=== PATIENT | male | born 1990 ===

== ENCOUNTER 2016-11-19 08:33 | Emergency (ER) | payer OTHER ==
[2016-11-19 09:00] VITALS: RESP 18; O2SAT 99
[2016-11-19] MEDS ORDERED: Naproxen 550 mg Tab PO STA (09:29)
[2016-11-19] MEDS ORDERED: Naproxen 550 mg Tab PO ONE (09:34)
--- NOTE | 2016-11-19 10:57 | RAD ---
Lumbar spine three views History: Injury. Comparison: None available. 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 Question minimal angulation of the anterior cortex of the distal sacrum/proximal coccyx for which subtle nondisplaced fracture can't be excluded. This may be better evaluated with MRI. Vertebral body heights are preserved. Spinal alignment is maintained. Impression: Hemisacralization of the left aspect of the L5 vertebral body. Question minimal angulation of the anterior cortex of the distal sacrum/proximal coccyx for which subtle nondisplaced fracture can't be excluded. This may be better evaluated with MRI.
--- NOTE | 2016-11-19 11:02 | C.PDOC ---
History Of Present Illness Pt slipped and fell on his buttocks. He c/o lower back pain. Time Seen by Provider: 11/19/16 09:26 Chief Complaint (Nursing): Back Pain History Per: Patient Onset/Duration Of Symptoms: Days (2) Current Symptoms Are (Timing): Still Present Quality Of Discomfort: "Pain" Severity: Moderate Previous Symptoms: None Associated Symptoms: None. denies: Incontinence, New Weakness, New Numbness Exacerbating Factor(s): Movement, Sitting Additional History Per: Prior Records Past Medical History Reviewed: Historical Data, Nursing Documentation, Vital Signs Vital Signs: Last Vital Signs Temp 97.4 F L 11/19/16 08:58 Pulse 96 H 11/19/16 08:58 Resp 18 11/19/16 08:58 BP 109/64 11/19/16 08:58 Pulse Ox 99 11/19/16 08:58 - Medical History PMH: No Chronic Diseases Surgical History: No Surg Hx Family History: States: Unknown Family Hx - Social History Hx Alcohol Use: Yes Hx Substance Use: Yes - Immunization History Hx Tetanus Toxoid Vaccination: No Hx Influenza Vaccination: No Hx Pneumococcal Vaccination: No Review Of Systems Except As Marked, All Systems Reviewed And Found Negative. Constitutional: Negative for: Fever, Weakness Cardiovascular: Negative for: Chest Pain Respiratory: Negative for: Shortness of Breath Gastrointestinal: Negative for: Vomiting, Abdominal Pain Genitourinary: Negative for: Dysuria, Incontinence, Hematuria Musculoskeletal: Negative for: Neck Pain Skin: Negative for: Rash Neurological: Negative for: Weakness, Numbness, Seizures, Altered Mental Status Physical Exam - Physical Exam Appears: Non-toxic, No Acute Distress Skin: Normal Color, Warm, Dry, No Rash Head: Atraumatic, Normacephalic Eye(s): bilateral: PERRL, EOMI Neck: Normal ROM, No Midline Cervical Tenderness, No Step Off Deformity, Supple Cardiovascular: Rhythm Regular Respiratory: Normal Breath Sounds, No Accessory Muscle Use Gastrointestinal/Abdominal: Soft, No Tenderness Back: No CVA Tenderness, Vertebral Tenderness (coccyx area) Extremity: Normal ROM, No Deformity Neurological/Psych: Oriented x3, Normal Motor, Normal Sensation ED Course And Treatment O2 Sat by Pulse Oximetry: 99 Pulse Ox Interpretation: Normal - Other Rad LS spine x-rays X-Ray: Viewed By Me, Read By Radiologist Interpretation: Impression: Hemisacralization of the left aspect of the L5 vertebral body. Question minimal angulation of the anterior cortex of the distal sacrum/proximal coccyx for which subtle nondisplaced fracture can't be excluded. This may be better evaluated with MRI. Reassessment Condition: Improved Disposition Counseled Patient/Family Regarding: Studies Performed, Diagnosis, Need For Followup, Rx Given - Disposition Referrals: [facility] [Outside] Disposition: HOME/ ROUTINE Disposition Time: 11:03 Condition: IMPROVED Additional Instructions: Follow up with a doctor or in the clinic for further evaluation and treatment. Return to the ER if you develop weakness, numbness, trouble urinating or defecting, abdominal pain, worsening of symptoms or if you have any other concerns. Prescriptions: Naproxen [Naprosyn] 1 tab PO BID PRN #20 tab PRN Reason: Pain Instructions: Coccyx Injury (ED) - Clinical Impression Clinical Impression: Injury of coccyx
[2016-11-19 11:05] VITALS: BP 107/70; PULSE 57; TEMP 98.5
== END 2016-11-19 11:10 | disposition home or self-care (01) ==
LOC: C.ER 08:33
DX: S39.92XA Unspecified injury of lower back, initial encounter (principal); W01.0XXA Fall on same level from slipping, tripping and stumbling without subsequent striking against object, initial encounter; Y93.9 Activity, unspecified; Y92.9 Unspecified place or not applicable